=== PATIENT | female | born 1970 | race Caucasian/White ===

== ENCOUNTER 2016-09-08 06:09 | Observation (INO) | payer OTHER ==
[2016-09-08] VITALS (9 sets, daily range): BP systolic 83–117; BP diastolic 61–79; PULSE 74–118; RESP 14–20; TEMP 96.7–99.1; O2SAT 97–100
[~2016-09-08] VITALS: Ht 170.2 cm; Wt 61.5 kg
[~2016-09-08 06:09] MED LIST: IBUP-238 PO; Z.0.NO CURRENT MEDS
--- NOTE | 2016-09-08 06:46 | PD ---
HPI Chief Complaint: Syncope/Near-Syncope Time Seen by Provider: 06:28 Travel History International Travel<30 days: No Contact w/Intl Traveler<30days: No Traveled to known affect area: No History of Present Illness HPI The patient is a 46-year-old female, G3, P3, A0 who had a syncopal spell at about 5 in the morning. She states she normally has low blood pressure. She has been having severe menstrual. Cramping and she thinks that the severe pain plate apart and her syncopal episode. She does not have a history of seizures. She did not hurt herself when she fell. She apparently found herself on the floor and could not remember how she got there. Her only medications are Motrin 800 mg 3 times a day. The pain is bilateral and not more on one side than the other. She states her has had of as ectopy and there is absolutely no chance that she is . She denies any fever. Her vaginal bleeding is minimal. PFSH Past Medical History Diminished Hearing: No ?: Not Past Surgical History Section: Yes Social History Alcohol Use: No Tobacco Use: No Substance Use: No Allergies-Medications (Allergen,Severity, Reaction): Coded Allergies: Ampicillin (Verified Allergy, Intermediate, FEVER AND RASH, 05/07/10) Penicillin (Verified Allergy, Intermediate, RASH/FEVER, 05/07/10) Reported Meds & Prescriptions Reported Meds & Active Scripts Active No Active Prescriptions or Reported Medications Review of Systems Except as stated in HPI: all other systems reviewed are Neg Physical Exam Narrative GENERAL: The patient is alert, oriented 3 perhaps minimally anemic color in minimal apparent distress with her pelvic pain. Her vital signs show pulse of 100 and blood pressure 99/66 but are otherwise normal. SKIN: Warm and dry. HEAD: Atraumatic. Normocephalic. EYES: Pupils equal and round. No scleral icterus. No injection or drainage. ENT: No nasal bleeding or discharge. Mucous membranes pink and moist. NECK: Trachea midline. No JVD. CARDIOVASCULAR: Regular rate and rhythm. No murmur appreciated. RESPIRATORY: No accessory muscle use. Clear to auscultation. Breath sounds equal bilaterally. GASTROINTESTINAL: Abdomen soft, with slight tenderness to direct palpation in the bilateral pelvis, nondistended. Hepatic and splenic margins not palpable. No guarding or rebound is present. MUSCULOSKELETAL: No obvious deformities. No clubbing. No cyanosis. No edema. NEUROLOGICAL: Awake and alert. No obvious cranial nerve deficits. Motor grossly within normal limits. Normal speech. PSYCHIATRIC: Appropriate mood and affect; insight and judgment normal. Data Data Last Documented VS Vital Signs Date Time Temp Pulse Resp B/P Pulse Ox O2 Delivery O2 Flow Rate FiO2 09/08/16 06:40 Room Air 09/08/16 06:26 98.2 100 18 99/66 98 Orders Complete Blood Count With Diff (09/08/16 06:38) Basic Metabolic Panel (Bmp) (09/08/16 06:38) Urinalysis - C+S If Indicated (09/08/16 06:38) [facility] Medical Decision Making Medical Screen Exam Complete: Yes Emergency Medical Condition: Yes Medical Record Reviewed: Yes Differential Diagnosis Syncopal spell from: Hypotension, severe paindysmenorrhea, anemiaunlikely, hypo-/hyperglycemiaunlikely, electrolyte disorderunlikely, dehydration Narrative Course It is now 0650 and the patient is transferred to Dr. Martin. Scripts No Active Prescriptions or Reported Meds Sterling Caban MD Sep 08, 2016 06:46
--- NOTE | 2016-09-08 06:59 | PD ---
Physical Exam Date Seen by Provider: Sep 08, 2016 Time Seen by Provider: 06:58 Narrative The patient is a 46-year-old female was initially evaluated by the previous physician, Dr. Caban. Please refer to the initial history, physical, diagnostic evaluation, treatment modality plan. The patient is signed out at 7 AM with EKG and laboratory evaluation pending after a syncopal episode secondary to painful menstrual cramps. The patient states her has a history of a vastectomy, denies . Data Data Last Documented VS Vital Signs Date Time Temp Pulse Resp B/P Pulse Ox O2 Delivery O2 Flow Rate FiO2 09/08/16 07:06 104 14 104/72 125 17 109/70 131 17 96/68 09/08/16 06:40 Room Air 09/08/16 06:26 98.2 98 Orders Complete Blood Count With Diff (09/08/16 06:38) Basic Metabolic Panel (Bmp) (09/08/16 06:38) Urinalysis - C+S If Indicated (09/08/16 06:38) Orthostatic Vital Signs (09/08/16 06:49) Electrocardiogram (09/08/16 06:50) Sodium Chlor 0.9% 1000 Ml Inj (Ns 1000 M (09/08/16 07:00) Aspirin Chew (Aspirin Chew) (09/08/16 07:30) Sodium Chlor 0.9% 1000 Ml Inj (Ns 1000 M (09/08/16 07:30) Ed Urine Pregnancytest Poc (09/08/16 07:20) Digoxin (Lanoxin) (09/08/16 07:30) Echo 2d Comp W/Dopp(Routine) (09/08/16 ) Admit Order (Ed Use Only) (09/08/16 07:28) Ketorolac Inj (Toradol Inj) (09/08/16 07:45) Labs Laboratory Tests Test 09/08/16 09/08/16 06:55 07:25 White Blood Count 9.5 TH/MM3 Red Blood Count 3.92 MIL/MM3 Hemoglobin 12.0 GM/DL Hematocrit 36.0 % Mean Corpuscular Volume 91.8 FL Mean Corpuscular Hemoglobin 30.5 PG Mean Corpuscular Hemoglobin 33.2 % Concent Red Cell Distribution Width 12.1 % Platelet Count 211 TH/MM3 Mean Platelet Volume 8.7 FL Neutrophils (%) (Auto) 81.2 % Lymphocytes (%) (Auto) 10.5 % Monocytes (%) (Auto) 6.2 % Eosinophils (%) (Auto) 1.7 % Basophils (%) (Auto) 0.4 % Neutrophils # (Auto) 7.7 TH/MM3 Lymphocytes # (Auto) 1.0 TH/MM3 Monocytes # (Auto) 0.6 TH/MM3 Eosinophils # (Auto) 0.2 TH/MM3 Basophils # (Auto) 0.0 TH/MM3 CBC Comment DIFF FINAL Differential Comment Sodium Level 143 MEQ/L Potassium Level 3.9 MEQ/L Chloride Level 109 MEQ/L Carbon Dioxide Level 24.8 MEQ/L Anion Gap 9 MEQ/L Blood Urea Nitrogen 16 MG/DL Creatinine 0.59 MG/DL Estimat Glomerular Filtration 109 ML/MIN Rate Random Glucose 94 MG/DL Calcium Level 8.1 MG/DL Urine Collection Type CLEAN CATCH Urine Color YELLOW Urine Turbidity CLEAR Urine pH 6.0 Urine Specific [place] 1.015 Urine Protein NEG mg/dL Urine Glucose (UA) NEG mg/dL Urine Ketones NEG mg/dL Urine Occult Blood TRACE Urine Nitrite NEG Urine Bilirubin NEG Urine Leukocyte Esterase NEG Urine RBC 0-3 /hpf Urine WBC 0-2 /hpf Urine Squamous Epithelial 0-5 /hpf Cells Microscopic Urinalysis Comment CULT NOT INDICATED Urine Collection Time 07:25 MDM Medical Record Reviewed: Yes Supervised Visit with AMY: No Interpretation(s) EKG reveals atrial fibrillation with a rate in 96. Laboratory Tests Test 09/08/16 09/08/16 06:55 07:25 White Blood Count 9.5 TH/MM3 Red Blood Count 3.92 MIL/MM3 Hemoglobin 12.0 GM/DL Hematocrit 36.0 % Mean Corpuscular Volume 91.8 FL Mean Corpuscular Hemoglobin 30.5 PG Mean Corpuscular Hemoglobin 33.2 % Concent Red Cell Distribution Width 12.1 % Platelet Count 211 TH/MM3 Mean Platelet Volume 8.7 FL Neutrophils (%) (Auto) 81.2 % Lymphocytes (%) (Auto) 10.5 % Monocytes (%) (Auto) 6.2 % Eosinophils (%) (Auto) 1.7 % Basophils (%) (Auto) 0.4 % Neutrophils # (Auto) 7.7 TH/MM3 Lymphocytes # (Auto) 1.0 TH/MM3 Monocytes # (Auto) 0.6 TH/MM3 Eosinophils # (Auto) 0.2 TH/MM3 Basophils # (Auto) 0.0 TH/MM3 CBC Comment DIFF FINAL Differential Comment Sodium Level 143 MEQ/L Potassium Level 3.9 MEQ/L Chloride Level 109 MEQ/L Carbon Dioxide Level 24.8 MEQ/L Anion Gap 9 MEQ/L Blood Urea Nitrogen 16 MG/DL Creatinine 0.59 MG/DL Estimat Glomerular Filtration 109 ML/MIN Rate Random Glucose 94 MG/DL Calcium Level 8.1 MG/DL Urine Collection Type CLEAN CATCH Urine Color YELLOW Urine Turbidity CLEAR Urine pH 6.0 Urine Specific [place] 1.015 Urine Protein NEG mg/dL Urine Glucose (UA) NEG mg/dL Urine Ketones NEG mg/dL Urine Occult Blood TRACE Urine Nitrite NEG Urine Bilirubin NEG Urine Leukocyte Esterase NEG Urine RBC 0-3 /hpf Urine WBC 0-2 /hpf Urine Squamous Epithelial 0-5 /hpf Cells Microscopic Urinalysis Comment CULT NOT INDICATED Urine Collection Time 07:25 Differential Diagnosis Differential diagnosis includes arrhythmia, neurogenic syncope, neurogenic syncope, vasovagal syncope, orthostatic hypotension, dehydration, symptomatically anemia. Narrative Course The patient was initially evaluated by the previous physician, Dr. Caban. Please refer to the initial history, physical, diagnostic evaluation, and treatment modality plan. The patient was signed out at 7 AM with EKG and laboratory evaluation pending, as well as orthostatic vital signs pending. The patient's EKG did reveal atrial fibrillation. The patient's heart rate would vary from the 80s to approximately 115. She does have a history of syncope as a child, but denies any recent syncope. She has no known history of atrial fibrillation. She denies any history of TIA, CVA, hypertension, hyperlipidemia , diabetes, or congestive heart failure. The patient is followed by a physician property assistant at [facility] in [place], [place]. The patient was reevaluated at 7:15 AM, her abdominal cramping had resolved. She declined pain medications. The patient was administered aspirin 162 mg orally. I had a discussion with the patient regarding workup for new onset atrial fibrillation including echocardiogram to rule out atrial/ventricle thrombus. Patient states she would be unable to get an echocardiogram in a short amount of time, states her doctor's office is closed tomorrow. After discussion with the patient is agreed she be 23 hour observation for telemetry monitoring and echocardiogram. The patient's orthostatic vital signs were positive with increase in heart rate from 101-131 standing. The patient was administered a second liter of IV fluids. Urine test was negative. I do discussion with Dr. Elliott at 7:20 AM who agrees with 23 hour observation. Echocardiogram was ordered. The patient's blood pressure is on the low end of normal, she states is normally low. After discussion with the admitting hospitalist, was agreed the patient would be placed on digoxin as opposed to Lopressor or Cardizem secondary to her normally low blood pressure. Therefore, bedside test was ordered, with negative, patient will be administered digoxin. Patient understands disposition is 23 hour observation for echocardiogram. The patient was also administered Toradol 30 mg intravenously for dysmenorrhea. Physician Communication Physician Communication The on-call medical service was paged for 23 hour observation. I discussed the patient Dr. Elliott who agrees with 23 hour observation. Diagnosis Primary Impression: New onset atrial fibrillation Additional Impression: Syncope Qualified Code: R55 - Syncope, unspecified syncope type Admitting Information Admitting Physician Requests: Observation Scripts No Active Prescriptions or Reported Meds Condition: Stable Tarun Martin MD Sep 08, 2016 06:59
[2016-09-08 07:00] LABS: AUTOMATED NEUTROPHIL # 7.7 TH/MM3 (1.8-7.7); BASOPHIL % 0.4 % (0.0-2.0); EOSINOPHIL # 0.2 TH/MM3 (0-0.4); EOSINOPHIL % 1.7 % (0.0-4.0); HEMO FLAGS DIFF FINAL; LYMPH % 10.5 % (9.0-44.0); MEAN CELL VOLUME 91.8 FL (80.0-100.0); MEAN CORPUSCULAR HEMOGLOBIN 30.5 PG (27.0-34.0); MEAN CORPUSCULAR HGB CONC 33.2 % (32.0-36.0); MONO % 6.2 % (0.0-8.0); NEUT % 81.2 % (16.0-70.0); PLATELET COUNT 211 TH/MM3 (150-450); RED BLOOD COUNT 3.92 MIL/MM3 (4.00-5.30); RED CELL DISTRIBUTION WIDTH 12.1 % (11.6-17.2); WHITE BLOOD COUNT 9.5 TH/MM3 (4.0-11.0)
[2016-09-08] MEDS ORDERED: SODIUM CHLOR 0.9% 1000 ML INJ 1,000 ML IV SCH (07:00)
[2016-09-08 07:09] LABS: POTASSIUM 3.9 MEQ/L (3.5-5.1)
[2016-09-08 07:12] LABS: BICARBONATE 24.8 MEQ/L (21.0-32.0)
[2016-09-08 07:30] LABS: BLOOD, URINE TRACE (NEG); GLUCOSE,URINE NEG (NEG); KETONE, URINE NEG (NEG); NITRITE,URINE NEG (NEG)
[2016-09-08] MEDS ORDERED: DIGOXIN 0.25 MG TAB PO ONE ×3 (07:30→19:00)
[2016-09-08] MEDS ORDERED: SODIUM CHLOR 0.9% 1000 ML INJ 1,000 ML IV ONE (07:30)
[2016-09-08] MEDS ORDERED: ASPIRIN 81 MG CHEW TAB CHEW ONE (07:30)
[2016-09-08 07:31] LABS: METHOD OF COLLECTION CLEAN CATCH; URINE COLOR YELLOW (YELLW/STRAW)
[2016-09-08 07:34] LABS: COMMENT (UR) CULT NOT INDICATED; CULTURE IF INDICATED CULT NOT INDICATED; RBC, URINE 0-3 /hpf (0-3); SQUAMOUS EPITHELIAL CELL URINE 0-5 /hpf (0-5); WBC, URINE 0-2 /hpf (0-5)
[2016-09-08] MEDS ORDERED: KETOROLAC TROMETHAMINE 30 MG/ML (IVP) VIAL IV PUSH ONE (07:45)
--- NOTE | 2016-09-08 07:56 | EKG ---
Date Performed: 09/08/2016 Time Performed: 06:51:14 PTAGE: 46 years EKG: Atrial fibrillation Abnormal ECG NO PREVIOUS TRACING DOCTOR: Moisés Ruth Interpretating Date/Time 09/08/2016 07:55:59
[2016-09-08] MEDS ORDERED: ONDANSETRON HCL 4 MG/2 ML VIAL IVP PRN (10:15)
[2016-09-08] MEDS ORDERED: NALOXONE HCL 0.4 MG/ML AMP IV PRN (10:15)
[2016-09-08] MEDS ORDERED: SODIUM CHLORIDE 0.9% FLUSH 5 ML FLUSH FLUSH PRN (10:15)
--- NOTE | 2016-09-08 12:04 | HHI.HP ---
[facility] Service [facility] Primary Care Physician Non-Staff Admission Diagnosis new-onset atrial fibrillation, syncope Diagnoses: (1) Syncope (2) New onset atrial fibrillation Travel History International Travel<30 Days: No Contact w/Intl Traveler <30 Da: No Traveled to Known Affected Are: No History of Present Illness This is a pleasant 46 year-old female with no significant past medical history other than menorrhagia and chronic hypertension who presented to the ER today complaining of an episode of syncope followed by palpitations at home. The patient stated that she started her menses yesterday and woke up this morning at about 5 AM with severe menstrual cramps. She got up to go use the bathroom and she sat on the side of the bed for several minutes that she does normally when she first gets up. She walked to the bathroom and the next thing that she remembers is that she was on the floor of the bathroom. There is no tongue biting or loss of bowel or bladder. The patient states that she does chronically get dizzy when she stands up secondary to her hypotension. After she woke up on the floor she did feel palpitations. At that point she decided to come to the ER. In the emergency department she was found to be in atrial fibrillation with a heart rate in the 120s. However due to the hypotension she was given oral digoxin 0.25 mg. The patient still is in atrial fibrillation with heart rate 110-120. Her hemoglobin is stable. Orthostatic blood vital signs have been ordered. Review of Systems Constitutional: DENIES: Fever, Chills Ears, nose, mouth, throat: DENIES: Throat pain Respiratory: DENIES: Cough, Shortness of breath Cardiovascular: COMPLAINS OF: Palpitations, DENIES: Chest pain, Dyspnea on Exertion, Lower Extremity Edema Gastrointestinal: DENIES: Nausea, Vomiting Genitourinary: DENIES: Hematuria, Dysuria Musculoskeletal: DENIES: Back pain, Neck pain Hematologic/lymphatic: DENIES: Lymphadenopathy Neurologic: DENIES: Abnormal gait, Headache Psychiatric: DENIES: Anxiety, Confusion Past Family Social History Past Medical History Heavy periods Chronic hypotension Past Surgical History Endometrial ablation, Allergies: Coded Allergies: Amoxicillin (Verified Allergy, Severe, Rash, 09/08/16) Ampicillin (Verified Allergy, Intermediate, FEVER AND RASH, 09/08/16) Penicillin (Verified Allergy, Intermediate, RASH/FEVER, 09/08/16) Family History Atrial fibrillation and her father Social History 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 No alcohol tobacco or drug use. Physical Exam Vital Signs Vital Signs Date Time Temp Pulse Resp B/P Pulse Ox O2 Delivery O2 Flow Rate FiO2 09/08/16 10:00 Automatic Cuff 09/08/16 08:45 98.8 118 20 117/79 100 09/08/16 08:15 116 14 97/72 100 Room Air 09/08/16 07:06 104 14 104/72 125 17 109/70 131 17 96/68 09/08/16 06:40 Room Air 09/08/16 06:26 98.2 100 18 99/66 98 Physical Exam GENERAL: Well-nourished, well-developed pleasant female patient. SKIN: Warm and dry. HEAD: Normocephalic. EYES: No scleral icterus. No injection or drainage. NECK: Supple, trachea midline. No JVD or lymphadenopathy. CARDIOVASCULAR: Irregularly irregular rate and rhythm without murmurs, gallops, or rubs. RESPIRATORY: Breath sounds equal bilaterally. No accessory muscle use. GASTROINTESTINAL: Abdomen soft, non-tender, nondistended. EXTREMITIES: No cyanosis, or edema. NEUROLOGICAL: Awake, alert, and oriented x 3. Non-focal. Laboratory Laboratory Tests Test 09/08/16 09/08/16 09/08/16 06:55 07:25 11:00 White Blood Count 9.5 Red Blood Count 3.92 Hemoglobin 12.0 Hematocrit 36.0 Mean Corpuscular Volume 91.8 Mean Corpuscular Hemoglobin 30.5 Mean Corpuscular Hemoglobin 33.2 Concent Red Cell Distribution Width 12.1 Platelet Count 211 Mean Platelet Volume 8.7 Neutrophils (%) (Auto) 81.2 Lymphocytes (%) (Auto) 10.5 Monocytes (%) (Auto) 6.2 Eosinophils (%) (Auto) 1.7 Basophils (%) (Auto) 0.4 Neutrophils # (Auto) 7.7 Lymphocytes # (Auto) 1.0 Monocytes # (Auto) 0.6 Eosinophils # (Auto) 0.2 Basophils # (Auto) 0.0 CBC Comment DIFF FINAL Differential Comment Sodium Level 143 Potassium Level 3.9 Chloride Level 109 Carbon Dioxide Level 24.8 Anion Gap 9 Blood Urea Nitrogen 16 Creatinine 0.59 Estimat Glomerular Filtration 109 Rate Random Glucose 94 Calcium Level 8.1 Urine Collection Type CLEAN CATCH Urine Color YELLOW Urine Turbidity CLEAR Urine pH 6.0 Urine Specific [place] 1.015 Urine Protein NEG Urine Glucose (UA) NEG Urine Ketones NEG Urine Occult Blood TRACE Urine Nitrite NEG Urine Bilirubin NEG Urine Leukocyte Esterase NEG Urine RBC 0-3 Urine WBC 0-2 Urine Squamous Epithelial 0-5 Cells Microscopic Urinalysis Comment CULT NOT INDICATED Urine Collection Time 07:25 Troponin I LESS THAN 0.02 Result Diagram: 09/08/1665409/08/1655 Assessment and Plan Assessment and Plan -Syncopal episode. Likely vasovagal in a patient with chronic hypotension. Orthostatics and echocardiogram have been ordered. Continue telemetry. Up with assist. -New-onset atrial fibrillation. Heart rate is in the 110 to 120s and she has palpitations. Blood pressure runs chronically low. We'll continue loading with oral digoxin. Aspirin for now. Consult cardiology for further recommendations and outpatient follow-up. -DVT prophylaxis with SCDs. Problem Qualifiers (1) Syncope: Qualified Code: R55 - Syncope, unspecified syncope type Prudence Elliott MD Sep 08, 2016 12:04
[2016-09-08] MEDS: SODIUM CHLOR 0.9% 1000 ML INJ 1,000 ML IV SCH ×2 (12:10→20:41)
[2016-09-08] MEDS ORDERED: ACETAMINOPHEN 325 MG TAB PO PRN (16:15)
--- NOTE | 2016-09-08 16:57 | EC ---
Study Study Date:09/08/2016 STUDY CONCLUSIONS SUMMARY - Left ventricle: The cavity size was normal. Wall thickness was normal. Systolic function was normal. The estimated ejection fraction was in the range of 60% to 65%. Wall motion was normal; there were no regional wall motion abnormalities. - Mitral valve: Mild regurgitation. - Tricuspid valve: Mild regurgitation. If LV function is below 40, please consider prescribing an ACEI or ARB or document rationale for non-use. PROCEDURE DATA STUDY STATUS: Elective. Procedure: Transthoracic echocardiography. Image quality was good. Scanning was performed from the parasternal, apical, and subcostal acoustic windows. Study completion: The patient tolerated the procedure well. Transthoracic echocardiography. M-mode, complete 2D, complete spectral Doppler, and color Doppler. Patient status: Inpatient. CARDIAC ANATOMY LEFT VENTRICLE: The cavity size was normal. Wall thickness was normal. Systolic function was normal. The estimated ejection fraction was in the range of 60% to 65%. Wall motion was normal; there were no regional wall motion abnormalities. AORTIC VALVE: Trileaflet; normal thickness leaflets. Doppler: Transvalvular velocity was within the normal range. There was no stenosis. No regurgitation. AORTA: Aortic root: The aortic root was normal in size. MITRAL VALVE: Structurally normal valve. Doppler: Transvalvular velocity was within the normal range. There was no evidence for stenosis. Mild regurgitation. LEFT ATRIUM: The atrium was normal in size. RIGHT VENTRICLE: The cavity size was normal. Wall thickness was normal. PULMONIC VALVE: Doppler: Transvalvular velocity was within the normal range. There was no evidence for stenosis. No regurgitation. TRICUSPID VALVE: Structurally normal valve. Doppler: Transvalvular velocity was within the normal range. Mild regurgitation. PULMONARY ARTERY: The main pulmonary artery was normal-sized. Systolic pressure was within the normal range. RIGHT ATRIUM: The atrium was normal in size. PERICARDIUM: There was no pericardial effusion. SYSTEMIC VEINS: Inferior vena cava: The vessel was normal in size. BASIC MEASUREMENTS ADULT Normal Left ventricle LV internal dimension, ED, chordal level, *34.7 mm 43-52 PLAX LV internal dimension, ES, chordal level, 24 mm 23-38 PLAX Fractional shortening, chordal level, PLAX 31 % >29 LV posterior wall thickness, ED 8.32 mm IVS/LVPW ratio, ED 0.96 <1.3 Ventricular septum Septal thickness, ED 8 mm Aortic valve Leaflet separation 15 mm 15-26 Right ventricle RV internal dimension, ED, PLAX *13.8 mm 19-38 BASIC MEASUREMENTS ADULT Normal Aortic valve Leaflet separation 15 mm 15-26 Aorta Root diameter, ED *41 mm 20-37 Left atrium Anterior-posterior dimension, ES 32 mm 19-40 LA/aortic root ratio 0.78 DOPPLER MEASUREMENTS ADULT Normal Main pulmonary artery Pressure, S 25 mm Hg =30 Tricuspid valve Regurgitant peak velocity 196 cm/s Peak RV-RA gradient, S 15 mm Hg Maximal regurgitant velocity 196 cm/s Systemic veins Estimated CVP 10 mm Hg Right ventricle RV pressure, S 25 mm Hg <30 LEGEND: Mean values are shown as u=mean value. Asterisk (*) ivory values outside specified normal range. Prepared and signed by Juan Pablo Davis [id number]
[2016-09-08] MEDS: SODIUM CHLORIDE 0.9% FLUSH 5 ML FLUSH FLUSH SCH (20:32)
--- NOTE | 2016-09-08 21:26 | MB ---
cc: GERARDO SERRA DATE OF CONSULTATION September 08, 2016 DATE OF 1970 REASON FOR CONSULTATION Atrial fibrillation with rapid ventricular response. HISTORY OF PRESENT ILLNESS A 46-year-old female with past medical history significant for hypotension, endometrial ablation and that presented to the emergency department after an episode of syncope in the setting of severe lower abdominal pain. She reports starting menses yesterday, woke up in the morning with severe menstrual cramps, when she went out to go to the bathroom and woke up on the floor. She reports that she was on the floor for about 5-10 minutes. When she woke up she went to bed and she felt palpitations in her chest for which she felt that that was concerning and she decided to come to the emergency department. In the emergency department she was found to be in atrial fibrillation with a heart rate in the 120s. She was started on digoxin because of low blood pressure and admitted to medicine for further management and evaluation. She denies chest pain, shortness of breath, PND, orthopnea, leg edema, fevers, chills, nausea, vomiting, diarrhea, lightheadedness, trauma to his chest, alcohol use, tremors, bleeding issues. REVIEW OF SYSTEMS Negative except for what is mentioned in HPI. PAST MEDICAL HISTORY Chronic hypotension. PAST SURGICAL HISTORY Endometrial ablation, . ALLERGIES AMOXICILLIN, AMPICILLIN AND PENICILLIN. FAMILY HISTORY Her father has atrial fibrillation. 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 She denies illicit drug use or smoking use or alcohol use. PHYSICAL EXAMINATION VITAL SIGNS: Temperature 99.1, pulse 90, respiratory rate 20, blood pressure 83/ 62, O2 sat 100% RA. GENERAL: She is alert, awake, oriented x3 in no acute distress, at bedside. HEENT: There is no JVD, no carotid bruits. HEART: Regular rate and rhythm. No murmurs or rubs or gallops appreciated. LUNGS: Clear to auscultation bilaterally. No wheezes or rhonchi or rales. ABDOMEN: Soft, nontender, nondistended with positive bowel sounds. EXTREMITIES: No cyanosis or edema. Pulses throughout. LABORATORY FINDINGS Hemoglobin 12, hematocrit 36, platelet count 211. Chemistries, sodium 143, potassium 3.9, BUN 16, creatinine 0.59. Troponin less than 0.02, calcium 8.1. Urine unremarkable. CARDIOLOGY STUDIES EKG shows atrial fibrillation with RVR, quality assurance monitor chassis. She was in a-fib with RVR for most of the day. However, she has converted again to normal sinus rhythm this evening. Echocardiogram shows normal LV systolic function with no wall motion abnormalities. ASSESSMENT/PLAN A 46-year-old female with above history and findings presented with new onset atrial fibrillation with RVR in the setting of severe menstrual cramps and syncope. She remains fairly hemodynamically stable. She has converted into sinus rhythm with digoxin. Her CHADS2 score is 0 for which aspirin will be the only oral anticoagulation needed at this time. At this point I would continue the digoxin, start aspirin 325mg, verify TSH, free T3 and free T4, avoid caffeinated drinks and consider consultation of [employer] [facility] to assess her lower abdominal pains and cramps. When she gets discharge she will need a 24-hour Holter monitor. She should be scheduled to follow up with me in the office. Thank you for the opportunity to take part in the care of this patient. Gerardo Serra MD [employer]/EO /8:32 PM /9:06 PM [facility]OU[facility]
[2016-09-09] VITALS: BP_SYST 90; BP_SYST 93; BP_SYST 94; BP_DIAS 60; BP_DIAS 61; BP_DIAS 64; PULSE 89; RESP 20; TEMP 96.2; O2SAT 99
[2016-09-09 04:00] VITALS: BP_SYST 100; BP_SYST 90; BP_DIAS 64; BP_DIAS 65; BP_DIAS 68; PULSE 68; RESP 20; TEMP 96.9; O2SAT 99
[2016-09-09] MEDS: SODIUM CHLOR 0.9% 1000 ML INJ 1,000 ML IV SCH (06:32)
[2016-09-09 08:00] VITALS: BP 87/62; PULSE 70; RESP 20; TEMP 98; O2SAT 98
[2016-09-09 08:03] VITALS: BP 95/66; PULSE 84; O2SAT 100
[2016-09-09 08:06] VITALS: BP 98/63; PULSE 85; O2SAT 97
[2016-09-09] MEDS ORDERED: INFLUENZA VIRUS VACCINE (QUADRIVALENT) 0.5 ML SYR IM ONE (10:00)
[2016-09-09] MEDS ORDERED: DIGO0.12 PO (10:54)
[2016-09-09] MEDS ORDERED: ASPI81TA11 PO (10:54)
[2016-09-09] MEDS: SODIUM CHLORIDE 0.9% FLUSH 5 ML FLUSH FLUSH SCH (11:09)
--- NOTE | 2016-09-09 11:59 | HHI.PR ---
Subjective Remarks Late entry. pt seen at 10 a.m. Converted to NSR yesterday around 4 p.m. No dizziness/lightheadedness. Cramps better. Objective Vitals Vital Signs Date Time Temp Pulse Resp B/P Pulse Ox O2 Delivery O2 Flow Rate FiO2 09/09/16 08:06 85 98/63 97 09/09/16 08:03 84 95/66 100 09/09/16 08:00 98.0 70 20 87/62 98 09/09/16 04:00 96.9 68 20 100/68 99 90/64 100/65 09/09/16 00:00 96.2 89 20 94/61 99 90/60 93/64 09/08/16 20:00 96.7 80 20 94/64 97 103/68 108/79 09/08/16 19:22 74 09/08/16 16:32 112 09/08/16 16:00 99.1 100 20 101/67 97 09/08/16 16:00 115 83/62 100 09/08/16 16:00 102 88/74 98 09/08/16 12:00 88 86/61 100 09/08/16 12:00 96 100/69 100 09/08/16 12:00 98.3 116 20 97/75 100 I/O 09/08/16 09/08/16 09/08/16 09/09/16 09/09/16 09/09/16 07:00 15:00 23:00 07:00 15:00 23:00 Intake Total 750 ml 1110 ml 1298 ml Balance 750 ml 1110 ml 1298 ml Intake Oral 750 ml 490 ml IV Total 1110 ml 808 ml # Voids 4 4 # Bowel Movements 0 0 Result Diagram: 09/08/16 0655 09/08/16 0655 Objective Remarks GENERAL: Well-nourished, well-developed patient. SKIN: Warm and dry. HEAD: Normocephalic. EYES: No scleral icterus. No injection or drainage. NECK: Supple, trachea midline. No JVD or lymphadenopathy. CARDIOVASCULAR: Regular rate and rhythm without murmurs, gallops, or rubs. RESPIRATORY: Breath sounds equal bilaterally. No accessory muscle use. GASTROINTESTINAL: Abdomen soft, non-tender, nondistended. EXTREMITIES: No cyanosis, or edema. NEUROLOGICAL: Awake, alert, and oriented x 3. Non-focal. A/P Problem List: (1) Syncope ICD Code: R55 Status: Acute (2) New onset atrial fibrillation ICD Code: I48.91 Status: Acute Assessment and Plan -Syncopal episode. Likely vasovagal in a patient with chronic hypotension. Orthostatics mildly positive, s/p; IVF. echocardiogram nml. -New-onset atrial fibrillation. converted to NSR last night. TSH and echo OK. Cont digoxin and asa. F/u with Dr. Abel in 1-2 weeks. DC home. Problem Qualifiers (1) Syncope: Qualified Code: R55 - Syncope, unspecified syncope type Prudence Elliott MD Sep 09, 2016 11:59
[2016-09-09 12:53] LABS: FREE T3 1.85 PG/ML (2.18-3.98); FREE T4 0.92 NG/DL (0.76-1.46)
--- NOTE | 2016-09-09 16:55 | EKG ---
Date Performed: 09/08/2016 Time Performed: 10:53:04 PTAGE: 46 years EKG: Atrial fibrillation with rapid ventricular response. Abnormal ECG PREVIOUS TRACING : 09/08/2016 06.51 Compared to previous tracing, the patient is now in rapid v entricular rate. DOCTOR: Valeria Le Interpretating Date/Time 09/09/2016 16:54:42
== END 2016-09-09 11:35 | disposition home or self-care (01) ==
LOC: PHED 06:09 → PHEDA 07:29 → PH3A 08:40
PROVIDERS: ADMIT Family Medicine; ATTEND Family Medicine
DX: I48.91 Unspecified atrial fibrillation (principal); R55 Syncope and collapse; I95.89 Other hypotension; N92.0 Excessive and frequent menstruation with regular cycle; N94.6 Dysmenorrhea, unspecified; R42 Dizziness and giddiness; R00.2 Palpitations; Z23 Encounter for immunization; Z82.49 Family history of ischemic heart disease and other diseases of the circulatory system
CPT/HCPCS: 80048; 80162; 81001; 84439; 84443; 84481; 84484; 84703; 85025; 93005; 93306; 99285; G0008; G0378; J1885; J7030; Q2038; 90471; 90686

== ENCOUNTER 2016-09-14 17:04 | Emergency (ER) | payer OTHER ==
[~2016-09-14] VITALS: Ht 170.2 cm; Wt 61.0 kg
[~2016-09-14 17:04] MED LIST changes: +ASPI81TA11 PO; +DIGO0.12 PO; -IBUP-238 PO; -Z.0.NO CURRENT MEDS
[2016-09-14 17:19] VITALS: BP 133/73; PULSE 71; RESP 16; TEMP 98.2; O2SAT 100
[2016-09-14 18:07] LABS: AUTOMATED NEUTROPHIL # 3.8 TH/MM3 (1.8-7.7); BASOPHIL # 0.1 TH/MM3 (0-0.2); BASOPHIL % 0.9 % (0.0-2.0); EOSINOPHIL # 0.2 TH/MM3 (0-0.4); EOSINOPHIL % 3.7 % (0.0-4.0); HEMO FLAGS DIFF FINAL; LYMPH % 27.5 % (9.0-44.0); LYMPHOCYTE # 1.7 TH/MM3 (1.0-4.8); MEAN CELL VOLUME 90.6 FL (80.0-100.0); MEAN CORPUSCULAR HGB CONC 33.1 % (32.0-36.0); MONO % 8.4 % (0.0-8.0); NEUT % 59.5 % (16.0-70.0); PLATELET COUNT 246 TH/MM3 (150-450); RED BLOOD COUNT 3.86 MIL/MM3 (4.00-5.30); WHITE BLOOD COUNT 6.3 TH/MM3 (4.0-11.0)
[2016-09-14 18:14] LABS: CHLORIDE 106 MEQ/L (98-107); POTASSIUM 3.9 MEQ/L (3.5-5.1); SODIUM (NA) 142 MEQ/L (136-145)
[2016-09-14 18:18] LABS: ANION GAP 9 MEQ/L (5-15); BICARBONATE 27.2 MEQ/L (21.0-32.0); BLOOD UREA NITROGEN 9 MG/DL (7-18)
[2016-09-14 18:21] LABS: ALT (GPT) 25 U/L (10-53); AST (GOT) 13 U/L (15-37); GLOMERULAR FILTRATION RATE 111 ML/MIN (>89)
[2016-09-14 18:22] LABS: TOTAL BILIRUBIN ADULT 0.5 MG/DL (0.2-1.0)
[2016-09-14 18:24] LABS: ALKALINE PHOSPHATASE 53 U/L (45-117)
--- NOTE | 2016-09-14 18:37 | PD ---
HPI Chief Complaint: Dizziness Time Seen by Provider: 17:18 Travel History International Travel<30 days: No Contact w/Intl Traveler<30days: No Traveled to known affect area: No History of Present Illness HPI This is a 46-year-old female who presents to the emergency department having had an episode of atrial fibrillation with RVR on September 09 in the setting of severe pelvic pain. She was started on digoxin and hospitalized for 24 hours. Her symptoms resolved and she reverted to normal sinus rhythm. She says since then she's been feeling dizzy and lightheaded, not feeling herself. She says when she sits still she feels a little bit faint and doesn't feel like she has her normal energy level. She has an appointment with Dr. Abel in 2 days but her symptoms of worsening so she wanted to come to the emergency department to be evaluated. She has been checking her blood pressure and her pulse at home and they've been reassuring. PFSH Past Medical History Atrial Fibrillation: Yes Autoimmune Disease: No Heart Rhythm Problems: Yes Cancer: No Cardiovascular Problems: Yes Diminished Hearing: No Endocrine: No Genitourinary: No Immune Disorder: No Musculoskeletal: No Neurologic: No Psychiatric: No Reproductive: No Respiratory: No Tetanus Vaccination: < 5 Years ?: Not LMP: 09/07/16 Past Surgical History Abdominal Surgery: Yes (hemmoroid surgery ) Section: Yes Gynecologic Surgery: Yes (c section ) Oral Surgery: Yes (wisdome teeth ) Other Surgery: Yes (breast aumentation ) Social History Alcohol Use: No Tobacco Use: No Substance Use: No Allergies-Medications (Allergen,Severity, Reaction): Coded Allergies: Amoxicillin (Verified Allergy, Severe, Rash, 09/14/16) Ampicillin (Verified Allergy, Intermediate, FEVER AND RASH, 09/14/16) Penicillin (Verified Allergy, Intermediate, RASH/FEVER, 09/14/16) Reported Meds & Prescriptions Reported Meds & Active Scripts Active Aspirin EC (Aspirin) 81 Mg Tabdr 81 Mg PO DAILY Digoxin 0.125 Mg Tab 0.125 Mg PO DAILY Review of Systems Except as stated in HPI: all other systems reviewed are Neg Physical Exam Narrative GENERAL:Well appearing, no acute distress SKIN: Warm and dry. HEAD: Atraumatic. Normocephalic. EYES: Pupils equal and round. No injection or drainage. ENT: Moist mucous membranes NECK: Trachea midline. CARDIOVASCULAR: Regular rate and rhythm. No murmur appreciated. RESPIRATORY: Clear to auscultation. Breath sounds equal bilaterally. GASTROINTESTINAL: Abdomen soft, non-tender, nondistended. MUSCULOSKELETAL: No obvious deformities. NEUROLOGICAL: Awake and alert. No obvious cranial nerve deficits. Moving all extremities. PSYCHIATRIC: Appropriate mood and affect; insight and judgment normal. Data Data Last Documented VS Vital Signs Date Time Temp Pulse Resp B/P Pulse Ox O2 Delivery O2 Flow Rate FiO2 09/14/16 17:21 100 Room Air 09/14/16 17:19 98.2 71 16 133/73 Orders Complete Blood Count With Diff (09/14/16 17:37) Comprehensive Metabolic Panel (09/14/16 17:37) Digoxin (09/14/16 17:37) ^ Insert Iv (09/14/16 17:37) Labs Laboratory Tests Test 09/14/16 17:10 White Blood Count 6.3 TH/MM3 Red Blood Count 3.86 MIL/MM3 Hemoglobin 11.6 GM/DL Hematocrit 35.0 % Mean Corpuscular Volume 90.6 FL Mean Corpuscular Hemoglobin 30.0 PG Mean Corpuscular Hemoglobin 33.1 % Concent Red Cell Distribution Width 12.0 % Platelet Count 246 TH/MM3 Mean Platelet Volume 9.6 FL Neutrophils (%) (Auto) 59.5 % Lymphocytes (%) (Auto) 27.5 % Monocytes (%) (Auto) 8.4 % Eosinophils (%) (Auto) 3.7 % Basophils (%) (Auto) 0.9 % Neutrophils # (Auto) 3.8 TH/MM3 Lymphocytes # (Auto) 1.7 TH/MM3 Monocytes # (Auto) 0.5 TH/MM3 Eosinophils # (Auto) 0.2 TH/MM3 Basophils # (Auto) 0.1 TH/MM3 CBC Comment DIFF FINAL Differential Comment Sodium Level 142 MEQ/L Potassium Level 3.9 MEQ/L Chloride Level 106 MEQ/L Carbon Dioxide Level 27.2 MEQ/L Anion Gap 9 MEQ/L Blood Urea Nitrogen 9 MG/DL Creatinine 0.58 MG/DL Estimat Glomerular Filtration 111 ML/MIN Rate Random Glucose 77 MG/DL Calcium Level 8.4 MG/DL Total Bilirubin 0.5 MG/DL Aspartate Amino Transf 13 U/L (AST/SGOT) Alanine Aminotransferase 25 U/L (ALT/SGPT) Alkaline Phosphatase 53 U/L Total Protein 7.2 GM/DL Albumin 3.7 GM/DL Digoxin Level 0.5 NG/ML MDM Medical Decision Making Medical Screen Exam Complete: Yes Emergency Medical Condition: Yes Medical Record Reviewed: Yes Interpretation(s) Afebrile, no tachycardia, normotensive No leukocytosis Electrolytes within normal limits Digoxin level is 0.5 Differential Diagnosis Atrial fibrillation, electrolyte abnormality, digoxin toxicity Narrative Course This is a 46-year-old female who presents to the emergency department with lightheadedness and dizziness in the setting of digoxin initiation after an episode of atrial fibrillation. She is very well-appearing on exam. She is placed on a monitor and an IV was established. EKG demonstrates normal sinus rhythm with no ST changes. Labs are obtained which demonstrates a subtherapeutic digoxin level. A think her symptoms are due to digoxin. She has a follow-up appointment with her loan reviewer on Monday. I suspect he may recommend that she discontinue it altogether but I prefer for her to wait until their consultation. I think she is safe for discharge and I asked her to continue her medications as prescribed until she follows with her loan reviewer. Diagnosis Primary Impression: Dizziness Patient Instructions: General Instructions Additional Instructions: If you develop severe chest pain, shortness of breath, sweating, lightheadedness , dizziness or difficulty breathing return to the emergency department immediately. Follow-up with your loan reviewer as scheduled. Med/Other Pt SpecificInfo: No Change to Meds Disposition: 01 DISCHARGE HOME Condition: Stable Amira Blakely MD Sep 14, 2016 18:37
[2016-09-14 18:39] LABS: DIGOXIN 0.5 NG/ML (0.8-2.0)
[2016-09-14 19:12] VITALS: BP 112/72; PULSE 87; RESP 18; O2SAT 97
--- NOTE | 2016-09-15 11:54 | EKG ---
Date Performed: 09/14/2016 Time Performed: 17:04:52 PTAGE: 46 years EKG: Sinus rhythm Compared to previous tracing, patient is no longer in atrial fibrillation. Normal ECG PREVIOUS TRACING : 09/08/2016 10.53 DOCTOR: Brendan Villatoro Interpretating Date/Time 09/15/2016 11:52:56
== END 2016-09-14 19:45 | disposition home or self-care (01) ==
LOC: PHED 17:04
DX: R42 Dizziness and giddiness (principal); I48.91 Unspecified atrial fibrillation
CPT/HCPCS: 80053; 80162; 85025; 93005

== ENCOUNTER 2017-12-25 19:06 | Emergency (ER) | payer OTHER ==
[~2017-12-25] VITALS: Ht 170.2 cm; Wt 61.4 kg
[~2017-12-25 19:06] MED LIST changes: -ASPI81TA11 PO; +ASPI81TA23 PO
[2017-12-25 19:21] VITALS: BP 117/57; PULSE 85; RESP 14; TEMP 97.9; O2SAT 100
--- NOTE | 2017-12-25 21:52 | EKG ---
Date Performed: 12/25/2017 Time Performed: 20:09:39 PTAGE: 47 years EKG: Sinus rhythm NORMAL ECG PREVIOUS TRACING : 09/14/2016 17.04 No significant change from previous tracing noted. DOCTOR: Kb Lambert Interpretating Date/Time 12/25/2017 21:51:33
== END 2017-12-25 20:19 | disposition left against medical advice (07) ==
LOC: PHED 19:06
DX: R03.0 Elevated blood-pressure reading, without diagnosis of hypertension (principal); Z53.21 Procedure and treatment not carried out due to patient leaving prior to being seen by health care provider
CPT/HCPCS: 93005; 99281

== ENCOUNTER 2018-08-03 22:49 | Observation (INO) ==
[2018-08-03 23:53] LABS: Baso % (Auto) 0.6 % (0.0-2.0); Eos # (Auto) 0.2 th/mm3 (0.0-0.4); Eos % (Auto) 3.1 % (0.0-4.0); Hematocrit 34.8 % (35.0-46.0); Hemoglobin 11.3 gm/dL (11.6-15.3); Lymph # (Auto) 2.1 th/mm3 (1.0-4.8); Lymph % (Auto) 29.1 % (9.0-44.0); Mean Corpuscular HGB Conc 32.6 % (32.0-36.0); Mean Corpuscular Hemoglobin 30.3 pg (27.0-34.0); Mean Platelet Volume 10.2 fL (7.0-11.0); Mono # (Auto) 0.7 th/mm3 (0.0-0.9); Mono % (Auto) 9.2 % (0.0-8.0); Neut # (Auto) 4.1 th/mm3 (1.8-7.7); Platelet Count 219 th/mm3 (150-450); Red Blood Count 3.74 mil/mm3 (4.00-5.30); Red Cell Distribution Width 12.1 % (11.6-17.2); White Blood Count 7.1 th/mm3 (4.0-11.0)
--- NOTE | 2018-08-04 00:03 | CT ---
EXAM DATE: 08/03/2018 11:55 PM EST AGE/SEX: 48 years / Female INDICATIONS: Right upper and lower extremity pain for two hours. CLINICAL DATA: This is the patient's initial encounter. Patient reports that signs and symptoms have been present for 1 day and indicates a pain score of 2/10. MEDICAL/SURGICAL HISTORY: None. None. RADIATION DOSE: 52.89 CTDI (mGy) COMPARISON: No prior exams available for comparison. TECHNIQUE: CT of the head without contrast. Using automated exposure control and adjustment of the mA and/or kV according to patient size, radiation dose was kept as low as reasonably achievable to ob tain optimal diagnostic quality images. DICOM format image data is available electronically for revi ew and comparison. FINDINGS: Cerebrum: The ventricles are normal. No midline shift, mass lesion, hemorrhage or acute infarction. No extraaxial fluid collections are seen. Posterior Fossa: The cerebellum and brainstem demonstrate no acute abnormality. The 4th ventricle is midline. The cerebellopontine angle is within normal limits. Extracranial: The visualized sinuses are clear. Skull: The calvaria is intact. No skull fracture. CONCLUSION: Negative noncontrast head CT. . Electronically signed by: Jelani Pennington MD 08/04/2018 12:01 AM EST
[2018-08-04 00:05] LABS: Prothrombin Time 10.5 sec (9.8-11.6)
[2018-08-04 00:24] LABS: Chloride 109 meq/L (98-107); Potassium 3.8 meq/L (3.5-5.1); Sodium 142 meq/L (136-145)
[2018-08-04 00:26] LABS: Calcium 7.5 mg/dL (8.5-10.1)
[2018-08-04 00:27] LABS: Anion Gap 7 meq/L (5-15); Blood Urea Nitrogen 16 mg/dL (7-18); Carbon Dioxide 25.7 meq/L (21.0-32.0); Glucose,Random 97 mg/dL (74-106)
[2018-08-04 00:30] LABS: Glomerular Filtration Rate Greater Than 89 mL/min (>89)
[2018-08-04] MEDS ORDERED: Acetaminophen 325 MG Tablet PO PRN (01:40)
[2018-08-04] MEDS ORDERED: Bisacodyl 10 MG Supp RECTAL PRN (01:40)
[2018-08-04] MEDS ORDERED: Sod Chloride 0.9% Inj 1,000 ML IV.CONT SCH (01:45)
--- NOTE | 2018-08-04 01:53 | ED ---
HPI General Chief complaint: Extremity Problem,Nontraumatic Stated complaint: radiating pain in r leg/arm tingling Time Seen by Provider: 08/03/18 23:15 Source: patient Mode of arrival: ambulatory History of Present Illness HPI Narrative: 48-year-old female came to the emergency room with history of sudden onset right lower extremity discomfort/aching in the calf area at 9 PM followed immediately by some discomfort in the back of her thigh of the same leg. Patient says that almost simultaneously she also started experiencing some tingling and weakness of her right upper extremity. Patient says that both these feelings did not feel normal. She said it was subtle but definitely different than her normal sensation. Patient has history of transient A. fib as well as a recently diagnosed and operated skin cancer on her lower lip area. Patient was concerned for a blood clot in her leg which brought her into the emergency room. She came in with her . Patient described the lower extremity discomfort as 2 out of 10. In the right upper extremity was a subtle weakness but no pain. Vital signs were stable. Patient says that she had a transient atrial fibrillation about 2-3 years back that converted on its own to a normal sinus rhythm. She has been told since then that she is free of atrial fibrillation. No history of chest pain, syncopal episode or any other associated complaints. Related Data Home Medications Medication Instructions Recorded Confirmed No Known Home Medications 08/03/18 08/03/18 Allergies Allergy/AdvReac Type Severity Reaction Status Date / Time amoxicillin Allergy Severe Rash Verified 08/03/18 23:04 ampicillin Allergy Intermediate FEVER AND Verified 08/03/18 23:04 RASH penicillin G Allergy Intermediate RASH/FEVER Verified 08/03/18 23:04 Review of Systems ROS: all other systems reviewed are negative [facility] Medical History Medical History History of atrial fibrillation (Acute) History of hysterectomy (Acute) Surgical History Surgical History History of section (Acute) Family History Family History Father Prostate cancer Social History Social History Substance History: No History of Abuse Second Hand Smoke Exposure: No Smoking Status: Never smoker How Often Do You Have a Drink Containing Alcohol: Monthly or less Recent Travel in [facility] within the Last 8 Weeks: No Recent Out of Country Travel within the Last 8 Weeks: No Immunization History Tetanus Immunization: >5 Years Exam Narrative Exam Narrative: GENERAL: Awake, alert, anxious, no obvious distress SKIN: Focused skin assessment warm/dry. HEAD: Atraumatic. Normocephalic. EYES: Pupils equal and round. No scleral icterus. No injection or drainage. ENT: No nasal bleeding or discharge. Mucous membranes pink and moist. NECK: Trachea midline. No JVD. CARDIOVASCULAR: Regular rate and rhythm. No murmur appreciated. RESPIRATORY: No accessory muscle use. Clear to auscultation. Breath sounds equal bilaterally. GASTROINTESTINAL: Abdomen soft, non-tender, nondistended. Hepatic and splenic margins not palpable. MUSCULOSKELETAL: No obvious deformities. No clubbing. No cyanosis. No edema. NEUROLOGICAL: Awake and alert. No obvious cranial nerve deficits. Motor grossly within normal limits. Normal speech. NIH stroke score of 0 PSYCHIATRIC: Appropriate mood and affect; insight and judgment normal. Course Initial Documented Vital Signs Temperature 98.6 F 08/03/18 23:05 Pulse Rate 76 08/03/18 23:05 Respiratory Rate 15 08/03/18 23:05 Blood Pressure 122/74 08/03/18 23:05 Pulse Oximetry 96 08/03/18 23:05 Last Documented Vital Signs Temperature 99.3 F 08/04/18 12:00 Pulse Rate 90 08/04/18 12:01 Respiratory Rate 16 08/04/18 12:00 Blood Pressure 101/59 L 08/04/18 12:00 Pulse Oximetry 96 08/04/18 12:[address] Decision [address] [facility] Narrative Medical decision making narrative: I explained to the patient the concern being a possible stroke versus TIA. Based on this CAT scan was ordered. I discussed the case with Dr. Resendez was dehydrogenation supervisor for neurology who agreed for not calling this a stroke alert. Patient is not a TPA candidate. CT scan was within normal limits. Upon reassessment patient said that her symptoms have started to improve and the upper extremity weakness is almost gone. At this point MRI and MRA was done which showed the demyelinating lesion. I discussed with the patient about this finding and let her know that this would be discussed further by the neurologist. I tried to answer all her questions to the best of my ability. Medical Screen Exam Complete: Yes Emergency Medical Condition: Yes Lab Data Result diagrams: 08/03/18 23:10 08/03/18 23:10 Lab Results 08/03/18 08/03/18 08/03/18 Range/Units 23:10 23:10 23:10 CBC w Diff Auto diff final WBC 7.1 (4.0-11.0) th/mm3 RBC 3.74 L (4.00-5.30) mil/mm3 Hgb 11.3 L (11.6-15.3) gm/dL Hct 34.8 L (35.0-46.0) % MCV 93.0 (80.0-100.0) fL MCH 30.3 (27.0-34.0) pg MCHC 32.6 (32.0-36.0) % RDW 12.1 (11.6-17.2) % Plt Count 219 (150-450) th/mm3 MPV 10.2 (7.0-11.0) fL Neut % (Auto) 58.0 (16.0-70.0) % Lymph % (Auto) 29.1 (9.0-44.0) % Hamilton % (Auto) 9.2 H (0.0-8.0) % Eos % (Auto) 3.1 (0.0-4.0) % Baso % (Auto) 0.6 (0.0-2.0) % Neut # (Auto) 4.1 (1.8-7.7) th/mm3 Lymph # (Auto) 2.1 (1.0-4.8) th/mm3 Hamilton # (Auto) 0.7 (0.0-0.9) th/mm3 Eos # (Auto) 0.2 (0.0-0.4) th/mm3 Baso # (Auto) 0.0 (0.0-0.2) th/mm3 WBC Differential . Differential Comment . PT 10.5 (9.8-11.6) sec INR 1.0 Ratio Sodium 142 (136-145) meq/L Potassium 3.8 (3.5-5.1) meq/L Chloride 109 H (98-107) meq/L Carbon Dioxide 25.7 (21.0-32.0) meq/L Anion Gap 7 (5-15) meq/L BUN 16 (7-18) mg/dL Creatinine 0.59 (0.50-1.00) mg/dL Estimated GFR Greater than 89 (>89) mL/min Random Glucose 97 (74-106) mg/dL Hemoglobin A1c (4.3-6.0) % Calcium 7.5 L (8.5-10.1) mg/dL Troponin I Less than 0.02 L (0.02-0.05) ng/mL Triglycerides (42-150) mg/dL Cholesterol (120-200) mg/dL LDL Cholesterol, Calc (0-99) mg/dL HDL Cholesterol (40.0-60.0) mg/dL Cholesterol/HDL Ratio Ratio 08/04/18 08/04/18 Range/Units 09:02 09:02 CBC w Diff WBC (4.0-11.0) th/mm3 RBC (4.00-5.30) mil/mm3 Hgb (11.6-15.3) gm/dL Hct (35.0-46.0) % MCV (80.0-100.0) fL MCH (27.0-34.0) pg MCHC (32.0-36.0) % RDW (11.6-17.2) % Plt Count (150-450) th/mm3 MPV (7.0-11.0) fL Neut % (Auto) (16.0-70.0) % Lymph % (Auto) (9.0-44.0) % Hamilton % (Auto) (0.0-8.0) % Eos % (Auto) (0.0-4.0) % Baso % (Auto) (0.0-2.0) % Neut # (Auto) (1.8-7.7) th/mm3 Lymph # (Auto) (1.0-4.8) th/mm3 Hamilton # (Auto) (0.0-0.9) th/mm3 Eos # (Auto) (0.0-0.4) th/mm3 Baso # (Auto) (0.0-0.2) th/mm3 WBC Differential Differential Comment PT (9.8-11.6) sec INR Ratio Sodium (136-145) meq/L Potassium (3.5-5.1) meq/L Chloride (98-107) meq/L Carbon Dioxide (21.0-32.0) meq/L Anion Gap (5-15) meq/L BUN (7-18) mg/dL Creatinine (0.50-1.00) mg/dL Estimated GFR (>89) mL/min Random Glucose (74-106) mg/dL Hemoglobin A1c 5.1 (4.3-6.0) % Calcium (8.5-10.1) mg/dL Troponin I Less than 0.02 L (0.02-0.05) ng/mL Triglycerides 44 (42-150) mg/dL Cholesterol 132 (120-200) mg/dL LDL Cholesterol, Calc 83 (0-99) mg/dL HDL Cholesterol 40.5 (40.0-60.0) mg/dL Cholesterol/HDL Ratio 3.25 Ratio Imaging Data Radiologist's impression: Head CT 08/03/18 23:41 CONCLUSION: Negative noncontrast head CT. . Venous Doppler Study 08/03/18 23:47 CONCLUSION: There is no venous thrombosis in the right lower extremity. Carotid Doppler Study 08/04/18 00:00 CONCLUSION: Unremarkable bilateral carotid ultrasound. Head MRI 08/04/18 00:30 CONCLUSION: 1. No acute intracranial abnormality is identified. 2. Single area of white matter signal change in the left frontal periventricular region. Head MRA 08/04/18 00:31 CONCLUSION: No acute intracranial vascular abnormality is identified. Anatomic variants are present, as above. ECG Data Attestation: I personally reviewed and interpreted this ECG as follows: Interpretation: NSR, normal axis, NSST changes. HR of 63 bpm. Discharge Plan Discharge Disposition Patient Disposition: 30 Still Patient Discharge Condition Condition: Good Discharge Order Discharge Orders: Discharge Order (Routine); Ordered 08/04/18 Ordered By: Molly Devi ED Use Only Admit Order (Routine); Ordered 08/04/18 Ordered By: Stephon Dewitt Discharge Details Anticipated Discharge Date: 08/04/18 Discharge Comment: OK TO DC WHEN ECHO REPORT DONE AND READ BACK TO ME. Physicians Team ED Provider: Stephon Dewitt Primary Care Provider: NON STAFF,PROVIDER Attending Provider: Jamal Kurtz Other Providers: ; Alondra Resendez Status ED Status: Left Department Discharge Information Discharge Date/Time: 08/04/18 04:47
--- NOTE | 2018-08-04 02:22 | MR ---
EXAM DATE: 08/04/2018 2:10 AM EST AGE/SEX: 48 years / Female INDICATIONS: TIA. CLINICAL DATA: This is the patient's initial encounter. Patient reports that signs and symptoms have been present for 1 day and indicates a pain score of 0/10. MEDICAL/SURGICAL HISTORY: None. Hysterectomy. section. COMPARISON: [facility], CT HEAD W/O CONTRAST, 08/03/2018. . TECHNIQUE: Multiplanar, multisequence examination of the brain was performed without contrast. FINDINGS: Cerebrum: Ventricles are normal. No midline shift, mass lesion, hemorrhage or acute infarction. No extraaxial fluid collections are seen. The pituitary gland and suprasellar cistern are normal in con figuration. White Matter: There is a single 6 mm area of increased FLAIR/T2 signal in the left frontal periventr icular white matter. Posterior Fossa: The cerebellum and brainstem demonstrate no acute abnormality. The 4th ventricle is midline. The cerebellopontine angle is within normal limits. The cerebellar tonsils are normal in p osition. Diffusion Imaging: No areas of restricted diffusion are seen. Extracranial: The visualized sinuses are clear. CONCLUSION: 1. No acute intracranial abnormality is identified. 2. Single area of white matter signal change in the left frontal periventricular region. Electronically signed by: Jelani Pennington MD 08/04/2018 2:21 AM EST
--- NOTE | 2018-08-04 02:28 | MR ---
EXAM DATE: 08/04/2018 2:12 AM EST AGE/SEX: 48 years / Female INDICATIONS: TIA. Right leg and arm numbness. CLINICAL DATA: This is the patient's initial encounter. Patient reports that signs and symptoms have been present for 1 day and indicates a pain score of 0/10. MEDICAL/SURGICAL HISTORY: None. Hysterectomy. section. COMPARISON: [facility], CT HEAD W/O CONTRAST, 08/03/2018. . TECHNIQUE: 3D [id number] MRA was performed. Source images, multiplanar STS MIP, and 3D volum e MIP reconstructions were reviewed. FINDINGS: The internal carotid arteries demonstrate no significant stenosis. 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 This is consistent with a persistent trigeminal a rtery. Anterior circulation otherwise demonstrates no abnormality. There is symmetric flow related en hancement within the A1 segments, anterior cerebral arteries, and middle cerebral arteries. There is persistent circulation on the right. Posterior cerebral arteries are within normal limits. Basi lar artery is diminutive with dominant left vertebral artery. CONCLUSION: No acute intracranial vascular abnormality is identified. Anatomic variants are present, as above. Electronically signed by: Jelani Pennington MD 08/04/2018 2:27 AM EST
--- NOTE | 2018-08-04 02:39 | US ---
EXAM DATE: 08/04/2018 2:29 AM EST AGE/SEX: 48 years / Female INDICATIONS: Right leg swelling. CLINICAL DATA: This is the patient's initial encounter. Patient reports that signs and symptoms have been present for 1 day and indicates a pain score of 2/10. MEDICAL/SURGICAL HISTORY: . AFIB. Hysterectomy. COMPARISON: No prior exams available for comparison. TECHNIQUE: Venous ultrasound of both lower extremities was performed from the inguinal ligament to t he proximal calf. Real-time, color Doppler and spectral tracing, compression and augmentation techni ques were used. FINDINGS: Normal compression of the deep venous system from the inguinal region to the proximal calf . No echogenic clot is seen. Normal response of the venous system to augmentation and respiration. CONCLUSION: There is no venous thrombosis in the right lower extremity. Electronically signed by: Jelani Pennington MD 08/04/2018 2:38 AM EST
[2018-08-04 08:31] VITALS: RESP 16
[2018-08-04] MEDS ORDERED: Senna/Docusate Sodium 8.6/50 MG Tablet PO SCH (09:00)
--- NOTE | 2018-08-04 09:33 | P.HP ---
History of Present Illness Primary Care Physician: PROVIDER NON STAFF Chief Complaint: Right upper and lower extremity weakness and tingling History of Present Illness: This is a pleasant 48-year-old female patient a known medical history of one isolated episode of atrial fibrillation presented to the ED with complaints of right lower extremity discomfort as well as right upper extremity weakness and tingling. Patient states that her symptoms occurred suddenly. Denies ever having these types of sensation before. Denies any any known trauma or muscle strain. All symptoms have resolved at time of assessment this morning, no further events overnight. Head CT negative on presentation. MRI showing demyelination. Neurology has seen patient with no concern for MS. Awaiting ECHO and carotid ultrasound. Patient does have a history of one episode of atrial fibrillation, sees Dr. Hidalgo cardiology, takes an aspirin a day and not on anticoagulation. She has not had any further atrial fibrillation episodes. Patient denies any further fever, chills, headache, chest pain, shortness of breath, ab pain, n/v/d or dysuria. Denies any new medications, follows closely with her PCP, her labs were last checked a month ago including lipids which were all negative. - Diagnosis (1) TIA (transient ischemic attack) (2) Right leg weakness (3) Right arm weakness Review of Systems All other systems reviewed negative except as stated in HPI PMFSH - History History Provided By: Patient - Medical History Medical History: Medical History (Last Reviewed 08/04/18 @ 09:26 by Molly Devi) History of atrial fibrillation History of hysterectomy - Surgical History Surgical History: Surgical History (Last Reviewed 08/04/18 @ 09:26 by Molly Devi) History of section - Family History Family History: Family History (Last Updated 08/04/18 @ 09:58 by Molly Devi) Father Prostate cancer - Social History I have reviewed the patient's Social History: Yes - Tobacco History Second Hand Smoke Exposure: No Smoking Status: Never smoker - Alcohol History How Often Do You Have a Drink Containing Alcohol: Monthly or less - Substance Use History Substance History: No History of Abuse - Travel History Recent Travel in the [place] Within the Last 8 Weeks: No Recent Travel Out of the Country Within the Last 8 Weeks: No - Immunization History Tetanus Immunization: >5 Years Medications and Allergies Active Medications: Active Medications Acetaminophen (Tylenol) 650 mg PO Q4H PRN PRN Reason: Temp > 100.4 Al Hydroxide/Mg Hydroxide (Milk Of Magnesia Liq) 30 ml PO Q12H PRN PRN Reason: Mild Constipation Aspirin (Ecotrin) 325 mg PO DAILY COUNT INCLUDES THE [facility] Last Admin: 08/04/18 09:10 Dose: 325 mg Bisacodyl (Dulcolax Supp) 10 mg RECTAL DAILY PRN PRN Reason: SEVERE CONSITIPATION Sodium Chloride (Ns Inj) 1,000 mls @ 100 mls/hr IV.CONT .Q10H COUNT INCLUDES THE [facility] Last Admin: 08/04/18 05:00 Dose: 100 mls/hr Lactulose (Lactulose Liq) 30 ml PO DAILY PRN PRN Reason: SEVERE CONSITIPATION Ondansetron HCl (Zofran Inj) 4 mg IV.PUSH Q6H PRN PRN Reason: NAUSEA OR VOMITING Senna/Docusate Sodium (Yovana-Colace) 1 tab PO BID COUNT INCLUDES THE [facility] Last Admin: 08/04/18 09:09 Dose: 1 tab Sennosides (Senokot) 17.2 mg PO Q12H PRN PRN Reason: Moderate Constipation Sodium Chloride (Ns Flush) 2 ml IV.FLUSH BID COUNT INCLUDES THE [facility] Last Admin: 08/04/18 09:10 Dose: Not Given Sodium Chloride (Ns Flush) 2 ml IV.FLUSH PRN PRN PRN Reason: FLUSH AFTER USING IV ACCESS Allergies Allergy/AdvReac Type Severity Reaction Status Date / Time amoxicillin Allergy Severe Rash Verified 08/03/18 23:04 ampicillin Allergy Intermediate FEVER AND Verified 08/03/18 23:04 RASH penicillin G Allergy Intermediate RASH/FEVER Verified 08/03/18 23:04 Home Medications Medication Instructions Recorded Confirmed Type No Known Home Medications 08/03/18 08/03/18 History Exam Vital signs: Vital Signs 08/03/18 23:05 08/04/18 00:52 08/04/18 03:15 Temperature 98.6 F Pulse Rate 76 73 79 Respiratory Rate 15 17 18 Blood Pressure 122/74 102/61 112/68 Pulse Oximetry 96 98 98 08/04/18 04:00 08/04/18 05:23 08/04/18 08:00 Temperature 98.6 F 98.3 F Pulse Rate 69 76 76 Respiratory Rate 20 16 Blood Pressure 112/70 103/59 L Pulse Oximetry 99 98 Intake & Output 1108/04/18 08/04/18 18:59 06:59 18:59 Weight 62.1 kg Other: # Voids 1 Weight On Admission 61.518 kg Narrative: GENERAL: Well-developed, well-nourished patient in [facility]. SKIN: Warm and dry. No rash. HEAD: Normocephalic. Atraumatic. EYES: Pupils equal and round. No scleral icterus. No injection or drainage. ENT: No nasal bleeding or discharge. Mucous membranes pink and moist. NECK: Supple. Trachea midline. CARDIOVASCULAR: Regular rate and rhythm. S1, S2 noted. No murmur appreciated. RESPIRATORY: No accessory muscle use. Clear to auscultation. Breath sounds equal bilaterally. GASTROINTESTINAL: Abdomen soft, non-tender, nondistended. Normoactive bowel sounds x4. MUSCULOSKELETAL: No obvious deformities. Extremities without clubbing, cyanosis , or edema. NEUROLOGICAL: Awake and alert. No obvious cranial nerve deficits. Motor grossly within normal limits. 5/5 muscle strength in bilateral upper and lower extremities. Normal speech. PSYCHIATRIC: Appropriate mood and affect; insight and judgment normal. Results - Labs CBC & Chem 7: 08/03/18 23:10 08/03/18 23:10 Labs: Laboratory Results - last 24 hr 08/03/18 08/03/18 08/03/18 23:10 23:10 23:10 CBC w Diff Auto diff final WBC 7.1 RBC 3.74 L Hgb 11.3 L Hct 34.8 L MCV 93.0 MCH 30.3 MCHC 32.6 RDW 12.1 Plt Count 219 MPV 10.2 Neut % (Auto) 58.0 Lymph % (Auto) 29.1 Williams % (Auto) 9.2 H Eos % (Auto) 3.1 Baso % (Auto) 0.6 Neut # (Auto) 4.1 Lymph # (Auto) 2.1 Williams # (Auto) 0.7 Eos # (Auto) 0.2 Baso # (Auto) 0.0 WBC Differential . Differential Comment . PT 10.5 INR 1.0 Sodium 142 Potassium 3.8 Chloride 109 H Carbon Dioxide 25.7 Anion Gap 7 BUN 16 Creatinine 0.59 Estimated GFR Greater than 89 Random Glucose 97 Calcium 7.5 L Troponin I Less than 0.02 L - Imaging Impressions Head CT 08/03/18 23:41 CONCLUSION: Negative noncontrast head CT. . Venous Doppler Study 08/03/18 23:47 CONCLUSION: There is no venous thrombosis in the right lower extremity. Head MRI 08/04/18 00:30 CONCLUSION: 1. No acute intracranial abnormality is identified. 2. Single area of white matter signal change in the left frontal periventricular region. Head MRA 08/04/18 00:31 CONCLUSION: No acute intracranial vascular abnormality is identified. Anatomic variants are present, as above. Caprini VTE Risk Assessment Caprini VTE Risk Assessment: No/Low Risk (score <= 1) Caprini Risk Assessment Model: Point Value = 1 Point Value = 2 Point Value = 3 Point Value = 5 Age 41-60 Minor surgery BMI > 25 kg/m2 Swollen legs Varicose veins or History of unexplained or recurrent spontaneous Oral contraceptives or hormone replacement Sepsis (< 1 month) Serious lung disease, including pneumonia (< 1 month) Abnormal pulmonary function Acute myocardial infarction Congestive heart failure (< 1 month) History of inflammatory bowel disease Medical patient at bed rest Age 61-74 Arthroscopic surgery Major open surgery (> 45 min) Laparoscopic surgery (> 45 min) Malignancy Confined to bed (> 72 hours) Immobilizing plaster cast Central venous access Age >= 75 History of VTE Family history of VTE Factor V Leiden Prothrombin [id number] Lupus anticoagulant Anticardiolipin antibodies Elevated serum homocysteine Heparin-induced thrombocytopenia Other congenital or acquired thrombophilia Stroke (< 1 month) Elective arthroplasty Hip, pelvis, or leg fracture Acute spinal cord injury (< 1 month) Prophylaxis Regimen: Total Risk Factor Score Risk Level Prophylaxis Regimen 0-1 Low Early ambulation 2 Moderate Order ONE of the following: *Sequential Compression Device (SCD) *Heparin 5000 units SQ BID 3-4 Higher Order ONE of the following medications: *Heparin 5000 units SQ TID *Enoxaparin/Lovenox 40 mg SQ daily (WT < 150 kg, CrCl > 30 mL/min) *Enoxaparin/Lovenox 30 mg SQ daily (WT < 150 kg, CrCl > 10-29 mL/min) *Enoxaparin/Lovenox 30 mg SQ BID (WT < 150 kg, CrCl > 30 mL/min) AND/OR *Sequential Compression Device (SCD) 5 or more Highest Order ONE of the following medications: *Heparin 5000 units SQ TID (Preferred with Epidurals) *Enoxaparin/Lovenox 40 mg SQ daily (WT < 150 kg, CrCl > 30 mL/min) *Enoxaparin/Lovenox 30 mg SQ daily (WT < 150 kg, CrCl > 10-29 mL/min) *Enoxaparin/Lovenox 30 mg SQ BID (WT < 150 kg, CrCl > 30 mL/min) AND *Sequential Compression Device (SCD) Assessment and Plan - Assessment (1) TIA (transient ischemic attack) Code(s): G45.9 - Transient cerebral ischemic attack, unspecified Status: Acute (2) Right leg weakness Code(s): R29.898 - Other symptoms and signs involving the musculoskeletal system Status: Acute (3) Right arm weakness Code(s): R29.898 - Other symptoms and signs involving the musculoskeletal system Status: Acute - Plan This is a 48-year-old patient who presented to the ED with Right lower extremity pain. Resolved. Right upper extremity weakness and tingling. Resolved. Ruled out TIA/CVA -Stroke alert was called. Neurology was consulted, not a TPA candidate. -Patient symptoms have completely resolved. -Head CT done and reviewed showing no acute changes. -An MRI/MRA of the head was done showing demyelinating lesion. Per neurology, no concern for MS. -Neurology consulted and has seen patient, no further input and recommendations. -A right lower extremity ultrasound was done which was negative for DVT. -Started on aspirin daily. -CBC and BMP reviewed, essentially unremarkable. -Awaiting lipid panel. -Echocardiogram done and pending. Follow report. -Ultrasound of the bilateral carotids have also been ordered and pending. -Supportive care. DVT prophylaxis: SCDs. Likely discharge home later this afternoon if workup negative.
--- NOTE | 2018-08-04 10:53 | US ---
EXAM DATE: 08/04/2018 10:42 AM EST AGE/SEX: 48 years / Female INDICATIONS: Transischemic attack. CLINICAL DATA: This is the patient's initial encounter. Patient reports that signs and symptoms have been present for 1 day and indicates a pain score of 1/10. MEDICAL/SURGICAL HISTORY: . Afib. . Hysterectomy. section. COMPARISON: No prior exams available for comparison. VELOCITY PARAMETERS: ICA/CCA Ratio: Right 1.0 , Left 1.0 ICA: Right 111 cm/sec, Left 124 cm/sec CCA: Right 110 cm/sec, Left 128 cm/sec ECA: Right 97 cm/sec, Left 97 cm/sec Vertebral: Right 65 cm/sec antegrade, Left 72 cm/sec antegrade FINDINGS: Right Carotid: No significant plaque is visualized.The waveforms are within normal limits. Left Carotid: No significant plaque is visualized. The waveforms are within normal limits. Other: None. CONCLUSION: Unremarkable bilateral carotid ultrasound. Electronically signed by: Lloyd Nelson MD 08/04/2018 10:52 AM EST
[2018-08-04 11:17] LABS: Cholesterol 132 mg/dL (120-200)
[2018-08-04 11:18] LABS: Chol/HDL Ratio 3.25 Ratio; HDL Cholesterol 40.5 mg/dL (40.0-60.0); LDL Cholesterol,Calculated 83 mg/dL (0-99); Triglycerides 44 mg/dL (42-150)
--- NOTE | 2018-08-04 11:57 | ECHRPT ---
Indication: CV/TIA CONCLUSIONS The left ventricular systolic function is normal with an estimated ejection fraction in the range of 55-60%. This study was not technically sufficient to allow for evaluation of left ventricular diastolic func tion. There is trace tricuspid valve regurgitation. BP: / HR: Rhythm: MEASUREMENTS (Male / Female) Normal Values Technical Quality:Very technically difficult study 2D ECHO LV Diastolic Diameter PLAX 4.4 cm 4.2 - 5.9 / 3.9 - 5.3 cm LV Systolic Diameter PLAX 3.1 cm IVS Diastolic Thickness 0.7 cm 0.6 - 1.0 / 0.6 - 0.9 cm LVPW Diastolic Thickness 1.0 cm 0.6 - 1.0 / 0.6 - 0.9 cm LV Relative Wall Thickness 0.4 RV Internal Dim ED PLAX 3.0 cm LVOT Diameter 2.1 cm Aortic Root Diameter 3.5 cm LA Systolic Diameter LX 2.9 cm 3.0 - 4.0 / 2.7 - 3.8 cm LV Ejection Fraction MOD 4C 59.1 % LV Ejection Fraction 4C AL 59.6 % M-MODE Aortic Root Diameter MM 3.8 cm LA Systolic Diameter MM 3.5 cm LA Ao Ratio MM 0.9 AV Cusp Separation MM 2.0 cm DOPPLER AV Peak Velocity 110.0 cm/s AV Peak Gradient 4.8 mmHg LVOT Peak Velocity 103.0 cm/s LVOT Peak Gradient 4.2 mmHg AV Area Cont Eq pk 3.2 cm Mitral E Point Velocity 71.6 cm/s Mitral A Point Velocity 57.8 cm/s Mitral E to A Ratio 1.2 LV E' Septal Velocity 7.1 cm/s Mitral E to LV E' Septal Ratio 10.1 TR Peak Velocity 217.0 cm/s TR Peak Gradient 18.8 mmHg Right Atrial Pressure 10.0 mmHg Pulmonary Artery Systolic Pressu 28.8 mmHg Right Ventricular Systolic Press 28.8 mmHg PV Peak Velocity 90.9 cm/s PV Peak Gradient 3.3 mmHg FINDINGS LEFT VENTRICLE Normal left ventricular size. Wall thickness is normal. The left ventricular systolic function is normal with an estimated ejection fraction in the range of 55-60%. There was limited left ventricular wall motion assessment due to poor endocardial visualization. This study was not technically sufficient to allow for evaluation of left ventricular diastolic func tion. RIGHT VENTRICLE Normal right ventricular size and systolic function. LEFT ATRIUM The left atrial size is upper limits of normal. RIGHT ATRIUM The right atrial size is upper limits of normal. ATRIAL SEPTUM Normal atrial septal thickness without atrial level shunting by limited color doppler interrogation. AORTA The aortic root and proximal ascending aorta are normal in size on limited imaging. MITRAL VALVE Structurally normal mitral valve. No mitral valve stenosis or regurgitation. AORTIC VALVE Grossly normal No aortic regurgitation or stenosis TRICUSPID VALVE Grossly normal There is trace tricuspid valve regurgitation. The estimated pulmonary arterial pressure is 29 mmHg. PULMONARY VALVE The pulmonary valve is not well visualized. VESSELS The inferior vena cava is normal in size. PERICARDIUM No pericardial effusion. Phill Hidalgo DO (Electronically Signed) Final Date:04 August 2018 11:56
--- NOTE | 2018-08-04 11:58 | MB ---
cc: Alondra Resendez MD DATE: 08/04/2018 REASON FOR CONSULTATION: Possible TIA. HISTORY OF PRESENT ILLNESS: The patient is a pleasant 48-year-old woman with a history 2 years ago of atrial fibrillation that had resolved on its own, follows with Dr. Hidalgo, Cardiology, [facility], I believe. However, yesterday she started to have some pain in her lower extremity, right calf that progressed to paresthesias as if her arm was asleep and not very coordinated in the right upper extremity, not the face, just did not feel her normal self, came in as a stroke alert. Otherwise, today she is back to baseline, offers no complaints of headache, chest pain, palpitations, weakness, numbness, tingling. She has a history of this episode of transient atrial fibrillation 2 years ago. During that time, she was having some uterine bleeding, severe pain when it occurred; it has not recurred. She has now had a hysterectomy. She also has a history of skin cancer, lower lip area. PAST MEDICAL HISTORY: As stated. SURGICAL HISTORY: , as well as a hysterectomy. SOCIAL HISTORY: She is . No history of tobacco or alcohol abuse or substance abuse. Takes a baby aspirin at home. PHYSICAL EXAMINATION: VITAL SIGNS: Temperature is 98.3, pulse 76, respiratory rate 16, blood pressure 103/59, sating at 98%. NECK: Supple. HEART: Regular. NEUROLOGIC: She is awake, alert. She is fluent. Her pupils are reactive. Visual wilder full. Face symmetrical. Tongue midline. Motor clinton, she does not exhibit any drift or leg lag. Cerebellar testing normal. DTRs are 2+, toes downgoing. Random alternating movements are normal bilaterally. She does not have any clumsiness on the right side. Gait: She has been ambulating to the bathroom without any issues. LABORATORY DATA: Reviewed. Her white count is 7.1, hemoglobin 11.3, her platelets are 219,000. Her coag panel, INR and PT were normal. Chemistries, calcium 7.5, otherwise fairly unremarkable chemistry. She is still pending her lipid panel. IMAGING: Head MRI shows a single area of white matter change in left frontal periventricular region. This is seen on FLAIR. There are no Henderson's fingers. There are no other white matter lesions of concern. [place] did not show any abnormalities. just anatomic variance. IMPRESSION: Possible transient ischemic attack versus cervicogenic issue. 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 She just had echo. I did order a carotid ultrasound for completion, lipid panel and A1c. Hemoglobin A1c is on order. Continue her on full dose aspirin at this point in time. Get her out of bed. Maintain on telemetry. If her workup is negative as far as carotid and echo, from my perspective, she can go home. Follow up with Dr. Hidalgo, Cardiology, and I will gladly see her in the office. Of note, I did not order a hypercoagulable panel at this time. There is no family history of any stroke in young hypercoagulable syndrome. Her mother was elderly when she developed some atrial fibrillation, but she had other medical problems as well. The patient is instructed if her symptoms return, then immediately back to the hospital for evaluation. She does have a heart rate monitor at home she can use. MD QUENTIN Etienne/syeda , 09:10 AM , 09:18 AM
[2018-08-04 12:30] VITALS: PULSE 90
[2018-08-04 12:48] LABS: Hemoglobin A1c 5.1 % (4.3-6.0)
[2018-08-04 13:53] VITALS: BP 101/59; TEMP 99.3; O2SAT 96
--- NOTE | 2018-08-05 12:53 | ECG ---
Date Performed: 08/04/2018 Time Performed: 00:03:01 PTAGE: 48 years EKG: Sinus rhythm POSSIBLE RIGHT VENTRICULAR CONDUCTION DELAY BORDERLINE ECG Since the PREVIOUS TRACING , no significant change noted PREVIOUS TRACIN12/25/2017 20.09 DOCTOR: Aftab Chance Interpretating Date/Time 08/05/2018 12:52:48
== END 2018-08-04 13:29 | disposition home or self-care (01) ==
LOC: PHEDA 22:49 → PHED 22:49 → PH3 08-04 04:40 → PHEDA 08-04 04:47
PROVIDERS: ADMIT Internal Medicine; ATTEND Internal Medicine